=== PATIENT | female | born 1985 | race Caucasian/White ===

== ENCOUNTER 2018-02-24 18:54 | Emergency (ER) | payer OTHER, SELFPAY ==
[2018-02-24 18:58] VITALS: BP 125/80; PULSE 61; RESP 16; TEMP 37.1; O2SAT 99; BMI 26.6
--- NOTE | 2018-02-24 19:03 | DI.RAD.S_ITS ---
PROCEDURE: XR TOE LT MIN 2V INDICATIONS: stubbed toe TECHNIQUE: 3 views of the fifth toe(s) acquired. COMPARISON: None. FINDINGS: Bones: There is an oblique fifth proximal phalanx mid-diaphyseal fracture with minimal plantar displacement of the distal fracture fragment. Soft tissues: No suspicious soft tissue densities. IMPRESSION: Acute oblique fifth proximal phalanx fracture of the left foot. Dictated by: Jamshid Chapa M.D. on 02/24/2018 at 21:41 Approved by: Jamshid Chapa M.D. on 02/24/2018 at 21:42
--- NOTE | 2018-02-24 19:22 | ED_ITS ---
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) Injury: Left: toes Type of Injury: blunt Place: home Severity: moderate Relieving factors: nothing Exacerbating factors: weight bearing and movement Context: direct blow Associated symptoms: snap/pop sensation Other symptoms: none Related Data Previous Rx's Medication Instructions Recorded albuterol sulfate [Proventil HFA] 2 puff INH SEE INSTRUCTIONS PRN #1 05/20/17 inh benzonatate [Tessalon Perles] 100 mg PO Q8HP PRN #30 cap 05/20/17 methylprednisolone [Medrol (Surendra)] 4 mg PO SEE INSTRUCTIONS PRN #1 pac 05/20/17 prednisone 50 mg PO AMCC #5 tab 05/20/17 Allergies Allergy/AdvReac Type Severity Reaction Status Date / Time hydrocodone [HYDROCODONE] Allergy Unknown Unverified 02/24/18 18:58 Review of Systems <MEENU Carrasco - Last Filed: 02/24/18 20:49> Review of Systems All systems reviewed & are unremarkable except as noted in HPI and below Constitutional Reports as per HPI and Reports system reviewed and no additional complaints, except as docu Musculoskeletal Reports as per HPI, Reports abnormal gait, Reports deformity (toe is sticking out sideways), Reports limited range of motion, Denies muscle weakness and Denies numbness Integumentary/Breasts Reports as per HPI, Denies unusual bruising and Denies wounds Neurologic Reports abnormal gait and Denies numbness Exam <MEENU Carrasco - Last Filed: 02/24/18 20:49> Initial Vital Signs Initial Vital Signs: Vital Signs Temperature 98.8 F 02/24/18 18:58 Pulse Rate 61 02/24/18 18:58 Respiratory Rate 16 02/24/18 18:58 Blood Pressure 125/80 02/24/18 18:58 Pulse Oximetry 99 02/24/18 18:58 Const General: cooperative, healthy appearing, comfortable and well developed Nutritional Appearance: average body habitus Orientation: alert, awake and oriented x3 Resp Effort & Inspection: normal respiratory effort and able to speak in complete sentences Back/Spine/Pelvis Cervical Spine: cervical ROM normal Thoracic/Lumbar Spine: thoraco-lumbar ROM limited Skin General: no rashes or lesions noted, elasticity normal, turgor normal and warm Neuro General: alert, awake and oriented x3 Cranial Nerves: CN's II-XI intact bilaterally Cognition: normal cognition Speech: speech normal Motor: muscle tone normal throughout Sensory Exam: no sensory deficits noted Extrem General: full ROM Right upper extremity: full ROM Left upper extremity: full ROM Right lower extremity: full ROM Left lower extremity: normal capillary refill and foot Details: normal capillary refill, tenderness, abnormal ROM of toe (decreased rom of 5th toe secondary to pain) Details: pain with active ROM and other (mild swelling) Psych Appearance: grossly normal and well kempt Mental Status: mental status grossly normal Speech and Movement: speech and movement normal Mood: congruent mood Affect: normal affect Attitude: cooperative Thought Process: normal Thought Content: normal Judgment: judgment good <Anders Connell DO - Last Filed: 02/25/18 02:29> Initial Vital Signs Initial Vital Signs: Vital Signs Temperature 98.8 F 02/24/18 18:58 Pulse Rate 61 02/24/18 18:58 Respiratory Rate 16 02/24/18 18:58 Blood Pressure 125/80 02/24/18 18:58 Pulse Oximetry 99 02/24/18 18:58 Course <MEENU Carrasco - Last Filed: 02/24/18 20:49> Orders Ordered: ED Orders 02/24/18 19:03 XR toe LT min 2V Stat Vital Signs - 8 hr 02/24/18 18:58 02/24/18 20:29 Temperature 98.8 F 97.3 F L Pulse Rate 61 67 Respiratory Rate 16 18 Blood Pressure 125/80 111/48 L Pulse Oximetry 99 98 <DO Melina Castro Last Filed: 02/25/18 02:29> Orders Ordered: ED Orders 02/24/18 19:03 XR toe LT min 2V Stat Vital Signs - 8 hr 02/24/18 18:58 02/24/18 20:29 Temperature 98.8 F 97.3 F L Pulse Rate 61 67 Respiratory Rate 16 18 Blood Pressure 125/80 111/48 L Pulse Oximetry 99 98 MDM - Extremity Injury (Lower) <MEENU Carrasco - Last Filed: 02/24/18 20:49> Differential Diagnosis Likely other (fx, dislocation, contusion) Discharge Plan Departure Patient Disposition: Home Clinical Impression: Fracture of toe Discharge Date/Time: 02/24/18 20:30 Interventions: ED Discharge Assessment Last Done: 02/24/18 20:29 Instructions: DI for Toe Fracture Activity Restrictions/Additional Instructions: Sam tape toes for at least 4 weeks, and recommend f/u xray Prescriptions: No Action benzonatate [Tessalon Perles] 100 MG capsule 100 mg PO Q8HP PRNQty: 30 RF: 1 methylprednisolone [Medrol (Surendra)] 4 MG tablets,dose pack 4 mg PO SEE INSTRUCTIONS PRNQty: 1 RF: 0 albuterol sulfate [Proventil HFA] 90 MCG/PUFF HFA aerosol inhaler 2 puff INH SEE INSTRUCTIONS PRNQty: 1 RF: 0 prednisone 50 MG tablet 50 mg PO [facility] [place]: 5 RF: 0 Referrals: Al Sifuentes MD [Physician] - Radhika Pimentel [Medical Student] - Alexx Kinsey MD [Physician] - <Anders Connell DO - Last Filed: 02/25/18 02:29> Cosign ED Attending Cosmelissaature Attestation: I was immediately available in the department for consultation. Documentation has been reviewed. I agree with assessment and plan.
[2018-02-24 20:29] VITALS: BP 111/48; PULSE 67; RESP 18; TEMP 36.3; O2SAT 98
== END 2018-02-24 20:30 | disposition home or self-care (01) ==
PROVIDERS: Emergency Provider Nurse Practitioner
DX: S92.592A Other fracture of left lesser toe(s), initial encounter for closed fracture (principal); W22.8XXA Striking against or struck by other objects, initial encounter
CPT/HCPCS: 73660; 99282; 99283

== ENCOUNTER 2023-11-19 07:33 | Emergency (ER) | payer OTHER, SELFPAY ==
[2023-11-19 07:41] VITALS: PULSE 87
[2023-11-19 07:43] VITALS: BP 128/80; PULSE 77; O2SAT 100
--- NOTE | 2023-11-19 07:43 | EKG_ITS ---
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
[2023-11-19 07:44] VITALS: BP 128/80; PULSE 75; RESP 15; TEMP 37.1; O2SAT 100; BMI 26.6
--- NOTE | 2023-11-19 07:50 | ED.CHESTPAIN ---
HPI - Chest Pain General Chief Complaint: Chest Pain Stated Complaint: massive pain in chest Time Seen by Provider: 11/19/23 07:43 Source: patient Mode of arrival: Ambulatory Limitations: no limitations History of Present Illness HPI narrative: 37-year-old female who 4 days ago stated that she was ?choking? she stated that she would the Heimlich maneuver performed on her. States she never actually vomited or coughed up any substance. She stated that they will event went on for approximately 5 minutes. Which show that she was given the Heimlich maneuver. Was able to breathe were short period of time but then things? closed up? 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 States since that time she has had discomfort to the left lateral chest wall that is somewhat worse with movement and touching. It is worse with taking a deep breath and coughing. Related Data Previous Rx's Medication Instructions Recorded albuterol sulfate 90 mcg/actuation 2 puff INH SEE INSTRUCTIONS PRN #1 05/20/17 aerosol inhaler (Proventil HFA) inh benzonatate 100 mg capsule 100 mg PO Q8HP PRN #30 caps 05/20/17 (Tessalon Perles) methylprednisolone 4 mg tablets in 4 mg PO SEE INSTRUCTIONS PRN ##1 05/20/17 a dose pack (Medrol (Surendra)) prednisone 50 mg tablet 50 mg PO AMCC #5 tabs 05/20/17 Allergies Allergy/AdvReac Type Severity Reaction Status Date / Time hydrocodone [HYDROCODONE] Allergy Unknown Hives, and Unverified 11/19/23 07:48 Vomiting Review of Systems Review of Systems ROS Unobtainable: All systems reviewed & are unremarkable except as noted in HPI and below Patient History Social History Smoking Status: Current every day smoker Smoking Status: Current every day smoker alcohol intake frequency: a few times a week Substance Use Type: does not use Exam Initial Vital Signs Initial Vital Signs: Vital Signs Pulse Rate 87 11/19/23 07:41 Const General: cooperative, comfortable and No ill appearing HENMT Head: normal to inspection and normocephalic Chest Other: Discomfort to palpation of the left lateral, anterior and somewhat posterior chest wall without crepitus. Resp Effort & Inspection: normal respiratory effort Auscultation: clear to auscultation bilaterally Cardio Rate: regular rate Rhythm: regular rhythm GI Inspection: normal to inspection and non-distended Palpation: soft and No tender Neuro General: patient alert, patient awake and moves all extremities Course Orders Ordered: ED Orders 11/19/23 07:43 EKG-12 Lead Stat 11/19/23 07:50 XR ribs LT min 3V w CXR1V Stat Vital Signs Vital signs: Vital Signs - 8 hr 11/19/23 07:41 11/19/23 07:43 11/19/23 07:43 Temperature Pulse Rate 87 77 Respiratory Rate Blood Pressure 128/80 Pulse Oximetry 100 Oxygen Delivery Method 11/19/23 07:44 11/19/23 08:03 11/19/23 08:03 Temperature 98.7 F Pulse Rate 75 96 H Respiratory Rate 15 Blood Pressure 128/80 125/79 Pulse Oximetry 100 98 Oxygen Delivery Method Room Air MDM - Chest Pain Imaging Data rib x-ray: Radiologist's Impression: PROCEDURE: XR RIBS LT MIN 3V W CXR1V INDICATIONS: L lateral rib pain after trauma TECHNIQUE: 2 views of the ribs were acquired, along with a single view chest. COMPARISON: None. FINDINGS: Surgical changes and devices: None. Bones and chest wall: No fractures or dislocations. No suspicious bony lesions. Overlying soft tissues appear unremarkable. Lungs and pleura: No pleural effusions or pneumothorax. Lungs appear clear. Mediastinum: Mediastinal contours appear normal. Heart size is normal. IMPRESSION: No displaced rib fracture or pneumothorax. ECG Data Attestation: I personally reviewed and interpreted this ECG as follows: Interpretation: Sinus rhythm Ventricular rate is 70 Normal axis Normal QRS Normal QTC No ST T wave changes MDM Narrative Medical decision making narrative: Patient is not vomiting. No respiratory distress. Lungs are clear. Not hypoxic. She was reproducible left-sided lower lateral chest wall discomfort. I suspect that this is related to the Heimlich maneuver that she received 4 days ago. X-ray shows no signs of fracture. Underlying lung is unremarkable. Low suspicion for ACS. She has not having any blood in her stool. No blood in her urine. We will hold on further workup for now. Conservative measures for now. Discuss this with the patient. She was given return precautions. She expressed understanding and agreement. Discharge Plan Departure Patient Disposition: Home Clinical Impression: Left-sided chest wall pain Instructions: DI for Rib Contusion Activity Restrictions/Additional Instructions: Your heart and lungs today all look very well. There were no fractures noted on the rib x-rays. I suspect that your symptoms will improve over the next couple days. You can take Tylenol/ibuprofen for any discomfort. Return to the emergency department for new symptoms. Prescriptions: No Action benzonatate [Tessalon Perles] 100 MG capsule 100 mg PO Q8HP PRNQty: 30 1RF methylprednisolone [Medrol (Surendra)] 4 MG tablets,dose pack 4 mg PO SEE INSTRUCTIONS PRNQty: 1 0RF albuterol sulfate [Proventil HFA] 90 MCG/PUFF HFA aerosol inhaler 2 puff INH SEE INSTRUCTIONS PRNQty: 1 0RF prednisone 50 MG tablet 50 mg PO AMCC Qty: 5 0RF Stand Alone Forms: Patient Portal/API
[2023-11-19 08:03] VITALS: BP 125/79; PULSE 96; O2SAT 98
[2023-11-19 08:30] VITALS: BP 107/67; PULSE 65; RESP 13; O2SAT 96
[2023-11-19 09:01] VITALS: TEMP 37.1
== END 2023-11-19 09:03 | disposition home or self-care (01) ==
PROVIDERS: Emergency Provider Emergency Medicine
DX: R07.89 Other chest pain (principal); X58.XXXA Exposure to other specified factors, initial encounter
CPT/HCPCS: 71101; 93005; 99283; 99284

== ENCOUNTER → 2023-12-07 12:55 | Outpatient (CLI) | payer OTHER, SELFPAY ==
--- NOTE | 2023-12-07 12:56 | DI.ECHO.S_ITS ---
[facility] : : [address] : : [place] : : [id number] : : Phone: [phone] Echocardiogram Report + + :Name: MYNOR WASHINGTON Study Date: 12/07/2023 Height: 65 in : :[facility] ReadingLocation: Weight: 155 lb : : Gender: Female BSA: 1.8 m2 : :: 1985 Age: 38 yrs BP: 111/71 mmHg: :Reason For Study: VENTRICULAR PREMATURE DEPOLARIZATION : :Ordering Physician: CINDY MAHONEY Performed By: Roxi Vazquez : :Referring: CINDY MAHONEY : + + Interpretation Summary 1. The left ventricular contractility is normal. Estimated ejection fraction is greater than 60% with no segmental wall motion abnormalities. No LVH. Normal diastolic function. 2. The right ventricular contractility is normal. 3. The left atrium is mildly enlarged. All other cardiac chambers are normal size. 4. There is mild mitral regurgitation noted. 5. No obvious intracardiac shunts noted. 6. No obvious intracardiac masses nor thrombi appreciated. 7. No hemodynamically significant pericardial effusion identified. Conclusion: Normal biventricular function with isolated left atrial enlargement. Procedure: A two-dimensional transthoracic echocardiogram with color flow and Doppler was performed. The study quality was technically adequate. There is no prior echocardiogram noted for this patient. The patient was in sinus bradycardia with heart rates between 57-61 bpm during the exam. Left Ventricle: The left ventricle is normal in size and wall thickness. The ejection fraction is estimated to be 60-65%. Right Ventricle: The right ventricle is normal in size and function. Atria: The left atrium is borderline dilated. Right atrial size is normal. There is no Doppler evidence for an interatrial shunt. Mitral Valve: The mitral valve is normal in structure and function. There is mild mitral regurgitation. Aortic Valve: The aortic valve is grossly normal. The aortic valve opens well. There is no aortic valve stenosis. No aortic regurgitation is present. Tricuspid Valve: The tricuspid valve is normal in structure and function. There is mild tricuspid regurgitation. The right ventricular systolic pressure is estimated to be at least 26 mmHg based on an estimated right atrial pressure of 8 mm Hg. Pulmonic Valve: The pulmonic valve is not well seen, but is grossly normal. There is no pulmonic valvular regurgitation. Great Vessels: The aortic root is normal size. The ascending aorta could not be visualized. The IVC is dilated (diameter is greater than 2.1 cm) yet it collapses greater than 50% with a sniff. This suggests a right atrial pressure of 8 mm Hg. Pericardium/ Pleura There is no pericardial effusion. There is no pleural effusion. MMode/2D Measurements & Calculations LVIDd: 4.6 cm LVOT diam: 2.0 cm LVIDs: 3.2 cm Ao root diam: 2.8 cm FS: 29.9 % Ao Arch Diam (Prox Trans): 2.5 cm IVSd: 0.65 cm LVPWd: 0.70 cm LV whitney. diameter/BSA (cm/m^2): 2.6 LV sys. diameter/BSA (cm/m^2): 1.8 LA A2 area: 19.8 cm2 RA long axis: 4.5 cm LA A4 area: 17.4 cm2 RA area: 12.2 cm2 LA length (vol): 4.8 cm RA vol: 28.0 ml LA vol: 61.0 ml RA : 15.8 ml/m2 LA vol index: 34.3 ml/m2 IVC diam: 2.4 cm RVD1 (basal): 3.7 cm TAPSE: 1.9 cm Doppler Measurements & Calculations Ao V2 max: 120.3 cm/sec LVOT Max Anthony: 83.6 cm/sec Ao V2 mean: 87.0 cm/sec LV V1 max P.8 mmHg Ao max P.8 mmHg LV V1 VTI: 17.5 cm Ao mean P.3 mmHg KENDALL(I,D): 2.2 cm2 Ao V2 VTI: 25.8 cm KENDALL(V,D): 2.2 cm2 sev ratio: 0.68 KENDALL indexed to BSA (cm^2/m^2): 1.2 MV E max anthony: 65.8 cm/sec TR max anthony: 210.5 cm/sec MV A max anthony: 32.1 cm/sec TR max P.7 mmHg MV E/A: 2.0 PA V2 max: 90.2 cm/sec Med Peak E' Anthony: 14.3 cm/sec PA V2 mean: 67.8 cm/sec E/E' med: 4.6 PA mean P.0 mmHg Lat Peak E' Anthony: 18.5 cm/sec PA pr(Accel): 12.2 mmHg E/E' lat: 3.5 E/e' average: 4.1 MV dec time: 0.14 sec SV(LVOT): 55.7 ml Reading Physician:
== END ==
LOC: ECHO 12:55
PROVIDERS: Referring Provider Internal Medicine; Visit Provider Internal Medicine
DX: I08.1 Rheumatic disorders of both mitral and tricuspid valves (principal); I49.3 Ventricular premature depolarization
CPT/HCPCS: 93306

== ENCOUNTER 2024-02-11 08:17 | Day surgery (SDC) | payer OTHER, SELFPAY ==
--- NOTE | 2024-02-11 | PATH_ITS ---
[facility] [place] Accession Number: [id number] No. of containers..02 Tissue . 01 Material submitted: . PART A: esophagus - MID ESOPHAGUS PART B: esophagus - DISTAL ESOPHAGUS . 01 Diagnosis: A-B. MID ESOPHAGUS, DISTAL ESOPHAGUS, BIOPSIES: Squamous epithelium with no diagnostic abnormality. Intraepithelial eosinophils are not increased. Negative for dysplasia and malignancy. V 02/14/2024 1406 Local . 01 Electronically signed: . Margareth Fu MD, Pathologist NPI- [id number] . 01 Gross description: . A. Received in formalin with two patient identifiers and mid esophagus, are three medina soft tissue fragments, 0.2 to 0.3 cm in greatest dimension. Submitted in A1. B. Received in formalin with two patient identifiers and distal esophagus, are two medina soft tissue fragments, 0.3 to 0.4 cm in greatest dimension. Submitted in B1. ([id number]) /MRV 02/12/2024 1311 Local . 01 Microscopic: . B. An AB/PAS stain was performed to evaluate for fungal organisms and is negative. The control stain showed appropriate reactivity. . 01 Pathologist provided ICD-10: R10.13 . 01 CPT . 622624, 732789, 685583 Specimen Comment: A courtesy copy of this report has been sent to [phone] Performed at: [address] [place] [address], [place], [place] [id number] MD Filipe Avendano MD Phone: [phone]
[2024-02-11] MEDS: LACTATED RINGERS 1,000 ML 42 ML IV ×2 (08:56→10:40)
[2024-02-11 08:57] VITALS: BP 127/76; PULSE 64; RESP 16; TEMP 36.2; O2SAT 99
--- NOTE | 2024-02-11 09:16 | PM.HP.1 ---
History of Present Illness History of Present Illness Date Patient Seen: 02/11/24 Time Patient Seen: 09:16 Chief complaint: SDC Narrative: 38-year-old female here for EGD. I reviewed the recent clinic note by Mynor Henson. No significant changes. FORMERLY [facility], [facility]–1983 Social History Smoking Status: Never smoker Meds Home Medications and Allergies Home Medications Medication Instructions Recorded Confirmed Type benzonatate 100 mg capsule 100 mg PO Q8HP PRN #30 caps 05/20/17 Rx (Tessalon Perlmichael) methylprednisolone 4 mg tablets in 4 mg PO SEE INSTRUCTIONS PRN ##1 05/20/17 Rx a dose pack (Medrol (Surendra)) prednisone 50 mg tablet 50 mg PO AMCC #5 tabs 05/20/17 Rx albuterol sulfate 90 mcg/actuation 2 puff INH SEE INSTRUCTIONS PRN 02/11/24 02/11/24 History aerosol inhaler (Proventil HFA) Wheezing Allergies Allergy/AdvReac Type Severity Reaction Status Date / Time hydrocodone [HYDROCODONE] Allergy Unknown Hives, and Verified 02/11/24 09:13 Vomiting Review of Systems Review of Systems ROS: Yes All systems reviewed with the patient and are negative except as otherwise documented Exam Vital Signs (past 8 hours): - 02/11/24 08:57 Temperature 97.2 F L Pulse Rate 64 Respiratory Rate 16 Blood Pressure 127/76 Pulse Oximetry 99 Oxygen Delivery Method Room Air Oxygen Delivery Method Room Air Const General: cooperative HENMT Head: normal to inspection Eyes General: appearance normal, both eyes and all related structures Neck Neck: normal visual inspection Chest Chest: normal inspection of the chest Resp Effort & Inspection: normal respiratory effort Cardio Rate: regular rate GI Inspection: normal to inspection Skin General: no rashes or lesions noted Neuro General: patient alert and patient awake Extrem General: normal to inspection and no pedal edema Psych Appearance: grossly normal Assessment & Plan Assessment & Plan narrative: 38-year-old female with dysphagia to liquids, pills, solids. She has had a mild globus sensation for for quite some time but all of the dysphagia symptoms have been magnified and accelerated since an episode of choking that required the Heimlich maneuver. Diagnostic and potentially therapeutic EGD is pursued today. Time-Based Coding :: [TOTAL MINUTES] spent with patient and on the chart (including review of chart, obtaining history, exam, reviewing outside data, placing orders, documenting exam and treatment plan, and counseling patient) on [DATE].
--- NOTE | 2024-02-11 09:18 | PM.PREOP ---
Pre-operative Note Interval Note History & Physical reviewed/Exam performed by Physician: Yes Changes to H&P: No ASA Class (for procedural sedation): II
--- NOTE | 2024-02-11 10:23 | PM.OP.EGD ---
Operative Date/Time/Diagnoses Date of procedure: 02/11/24 Time of procedure: 10:23 Pre-op diagnosis: Globus and dysphagia Post-op diagnosis: same Procedure & Clinicians Study performed: EGD with biopsies Same procedure as scheduled: Yes Indications: Globus and dysphagia Surgeon: Berlin Dumont Procedure Notes SCOAP/Timeout: Done Procedure in detail: After the risks and benefits were explained, written and verbal informed consent was obtained. The patient was brought into the procedure room and placed into the left lateral decubitus position. Please see anesthesia note for sedation details. The scope was introduced into the mouth through the bite block and advanced under direct visualization to the 1st portion of the duodenum. The scope was slowly withdrawn carefully examining the mucosa for any defects or lesions. Retroflexed views were accomplished in the stomach. The stomach was decompressed, the scope was then removed from the patient who did not tolerate the procedure very well. She had intermittent laryngospasm throughout the case. Sedation minutes: 12 Complications: none Impression: 1. Duodenal: The patient was not tolerating the procedure well when I was down in the duodenal. There was intermittent laryngospasm so I did not attempt to spend additional time reducing into the 2nd portion of the duodenal. The duodenal bulb appeared normal without mucosal anomaly. 2. Stomach: No ulcers and no mass lesions no outlet obstruction. Retroflexed views of the LES disclosed a small sliding hiatal hernia 3. Esophagus: Small sliding hiatal hernia was noted. No acute erosive esophagitis. No dominant stricture but the patient did have diffuse tightly group circumferential rings throughout the mid and distal esophagus suggestive of underlying eosinophilic esophagitis. Biopsies were taken from the distal and mid esophagus and submitted separately for histologic analysis. Endoscopic diagnosis 1. Tightly grouped diffuse circumferential esophageal rings 2. Small sliding hiatal hernia Post-procedure Plan for aftercare: 1. Await histology. 2. If eosinophilic esophagitis is confirmed, allergy assessment will be recommended. 3. For now I recommend initiation of a trial of omeprazole 20 mg once daily taken 30-60 minutes before the 1st meal of the day on an empty stomach. 4. Follow up short term in GI clinic to review response to therapy. Disposition: PACU
[2024-02-11 10:28] VITALS: BP 100/71; PULSE 124; PULSE 126; RESP 15; RESP 24; TEMP 36.3; O2SAT 98
[2024-02-11 10:34] VITALS: BP 90/52; PULSE 111; RESP 24; O2SAT 98
[2024-02-11 10:38] VITALS: BP 114/86; PULSE 114; RESP 15; O2SAT 97
[2024-02-11] MEDS: ALBUTEROL/IPRATROPIUM 3 ML AMPUL INH (10:40)
[2024-02-11 10:52] VITALS: BP 105/71; PULSE 91; RESP 11; O2SAT 97
== END 2024-02-11 11:04 | disposition home or self-care (01) ==
PROVIDERS: Referring Provider Internal Medicine Gastroenterology; Visit Provider Internal Medicine Gastroenterology
PROC: 0DJ08ZZ Inspection of Upper Intestinal Tract, Via Natural or Artificial Opening Endoscopic (ICD-10-PCS; CPT 43235; principal; 2024-02-11 09:30)
DX: R13.10 Dysphagia, unspecified (principal); K44.9 Diaphragmatic hernia without obstruction or gangrene
CPT/HCPCS: 43239; J2704